=== PATIENT | female | born 1995 | race Caucasian/White ===

== ENCOUNTER → 2016-12-22 | Outpatient (CLI) | payer OTHER ==
[~2016-12-22] VITALS: Ht 160 cm; Wt 117.5 kg
[~2016-12-22] MED LIST: BREAST PUMP MC; ENDOCET 5-3251 EACH PO; IBUPROFEN800 MG PO; NOHOMEMEDS; PRENATAL TABLE1 EAC3 PO; ROBITUSSIN100 MG/5 M PO
[2016-12-22 15:36] VITALS: BP 119/69
== END | disposition home or self-care (01) ==
LOC: IVINF 15:00
DX: Z67.21 Type B blood, Rh negative (principal); Z3A.24 24 weeks gestation of pregnancy
CPT/HCPCS: 96372; J2790

== ENCOUNTER 2017-03-12 14:39 | Inpatient (IN) | payer OTHER ==
[~2017-03-12] VITALS: Ht 162.6 cm; Wt 166.8 kg
[2017-03-12] VITALS (9 sets, daily range): BP systolic 122–164; BP diastolic 60–93
[2017-03-12 19:29] LABS: EOSINOPHIL (%) 0.2 % (0-5); HEMATOCRIT 35.8 % (36.0-46.0); IMMATURE GRANULOCYTE (%) 0.4 % (0.0-0.7); IMMATURE GRANULOCYTE COUNT 0.1 K/uL; INSTRUMENT ABS NEUTROPHIL CT 11.5 K/uL; MCHC 32.7 G/DL (30.0-36.0); MCV 82.7 FL (83-99); MEAN PLAT.VOLUME 11.1 uM^3 (9.5-12.4); MONOCYTE COUNT 0.5 K/uL (0-0.8); NEUTROPHIL (%) 87.3 % (45-76); NEUTROPHIL COUNT 11.5 K/uL (1.8-6.4); PLATELET COUNT 240 K/uL (156-360); RBC DIS.WIDTH-CV 13.5 % (11.8-14.6); RBC DIS.WIDTH-SD 40.4 % (39-53); RED BLOOD COUNT 4.33 M/uL (3.80-5.20); WHITE BLOOD COUNT 13.1 K/uL (4.1-10.2)
[2017-03-12] MEDS ORDERED: MOTRIN800 MG PO (23:00)
[2017-03-13 00:27] VITALS: BP 121/74
[2017-03-13 06:24] LABS: EOSINOPHIL (%) 0.3 % (0-5); HEMATOCRIT 29.4 % (36.0-46.0); IMMATURE GRANULOCYTE (%) 0.4 % (0.0-0.7); IMMATURE GRANULOCYTE COUNT 0.1 K/uL; INSTRUMENT ABS NEUTROPHIL CT 9.1 K/uL; LYMPHOCYTE COUNT 1.5 K/uL (1.0-2.8); MCH 27.8 PG (29.0-34.0); MCHC 33.3 G/DL (30.0-36.0); MCV 83.3 FL (83-99); MEAN PLAT.VOLUME 11.3 uM^3 (9.5-12.4); MONOCYTE (%) 7.5 % (3-12); MONOCYTE COUNT 0.9 K/uL (0-0.8); NEUTROPHIL COUNT 9.1 K/uL (1.8-6.4); PLATELET COUNT 236 K/uL (156-360); RBC DIS.WIDTH-CV 13.6 % (11.8-14.6); RBC DIS.WIDTH-SD 41.1 % (39-53); RED BLOOD COUNT 3.53 M/uL (3.80-5.20); WHITE BLOOD COUNT 11.5 K/uL (4.1-10.2)
[2017-03-13 23:00] VITALS: BP 126/74
[2017-03-14 08:19] VITALS: BP 125/69
[2017-03-14] MEDS ORDERED: IRON325 M1 PO (11:31)
[2017-03-14] MEDS ORDERED: COLACE100 MG PO (11:31)
[2017-03-14 14:34] VITALS: BP 128/69
== END 2017-03-14 18:00 | disposition home or self-care (01) | DRG 775 ==
LOC: LDRP-OP 14:39 → 2WEST 14:41
PROVIDERS: Midwife
DX: O99.214 Obesity complicating childbirth (principal); O36.0931 Maternal care for other rhesus isoimmunization, third trimester, fetus 1; D62 Acute posthemorrhagic anemia; Z3A.39 39 weeks gestation of pregnancy; Z37.0 Single live birth; O99.02 Anemia complicating childbirth; E66.9 Obesity, unspecified; F41.9 Anxiety disorder, unspecified; G47.00 Insomnia, unspecified; O99.344 Other mental disorders complicating childbirth; O26.893 Other specified pregnancy related conditions, third trimester; O12.04 Gestational edema, complicating childbirth; O66.0 Obstructed labor due to shoulder dystocia
CPT/HCPCS: 85025; C1755; J0595; J2270; J7120